=== PATIENT | male | born 1975 | race Caucasian/White ===

== ENCOUNTER 2020-06-10 22:49 | Emergency (ER) | payer OTHER ==
[~2020-06-10] VITALS: Ht 170.2 cm; Wt 81.6 kg
[2020-06-10 22:56] VITALS: Ht 170.2 cm; Wt 81.6 kg
[2020-06-11 01:32] VITALS: BP 138/93
== END 2020-06-11 01:32 | disposition home or self-care (01) ==
LOC: ED 22:49
DX: R00.2 Palpitations (principal); I10 Essential (primary) hypertension